=== PATIENT | female | born 1985 | race African-American/Black ===

== ENCOUNTER → 2017-01-17 | Outpatient (CLI) | payer OTHER ==
[~2017-01-17] MED LIST: ACET-749 PO; MTR600X PO; PRENTAB26 PO
--- NOTE | 2017-01-17 13:00 | DIAGNOSTIC IMAGING REPORT ---
(BARIUM SWALLOW) ESOPHAGUS CLINICAL HISTORY: CHEST PAIN. Painful swallowing. COMPARISON STUDY: None. FLUOROSCOPY TIME: 0.8 minutes.. FINDINGS: 24 images. The patient swallowed barium without difficulty. The contours of the hypopharynx are within normal limits. No hiatus hernia. No gastroesophageal reflux. The esophagus is normal in course, motility and caliber. The barium tablet passed without difficulty. IMPRESSION: Normal barium swallow. Electronically signed by: Timbo Hammer M.D. 01/17/2017 12:58 PM Dictated Date/Time: 01/17/2017 12:55 PM
== END | disposition home or self-care (01) ==
LOC: C.RAD 11:45
PROVIDERS: ATTEND Family Medicine
DX: R07.9 Chest pain, unspecified (principal); R13.10 Dysphagia, unspecified

== ENCOUNTER 2018-01-19 14:46 | Emergency (ER) | payer OTHER ==
[~2018-01-19] VITALS: Ht 160 cm; Wt 75.1 kg
[2018-01-19 14:59] VITALS: TEMP 36.8; Ht 160 cm; Wt 75.1 kg
[2018-01-19] MEDS ORDERED: PROPARACAINE HCL 0.5% OP SOLN 15 ML BTL OP STA (15:12)
--- NOTE | 2018-01-19 15:37 | EMERGENCY ROOM VISIT NOTE ---
ED Visit Note First contact with patient: 15:07 CHIEF COMPLAINT: Left eye pain HISTORY OF PRESENT ILLNESS: This 32-year-old female patient presents to the emergency department, ambulatory, complaining of pain in the left eye since last evening. The patient states she was pulling her child's shirt off, when she accidentally struck her left eye with the knuckle of her thumb. She reports some redness over the sclera and a possible blood clot. She states she has been using lubricating drops 3-4 times since the incident occurred, however this morning when she awoke she was experiencing a headache and her eye was burning. She states she also noticed a black speck in her vision which does move around when she moves her eye. She was seen at her PCPs office, diagnosed with a corneal abrasion, but advised to come to the emergency department for evaluation for possible retinal tear. The patient was given a prescription for antibiotic drops, however she has not picked them up. The patient does report wearing glasses, but denies wearing contacts.. There has been a constant moderate pain and irritation, redness and tearing in the eye. There is a mild blurring of vision at times and light bothers the eye. The vision has not been decreased over all. The patient does not wear contacts. The patient rates the pain as throbbing and 7/10. The patient has not had previous injuries to this eye. Tetanus shot is not up to date. REVIEW OF SYSTEMS: A 6 system review of systems was completed with positives and pertinent negatives listed in the HPI. ALLERGIES: None MEDICATIONS: Multivitamins PMH: None. The patient is currently breast-feeding. SOCIAL HISTORY: The patient lives locally with family. She denies drug, alcohol , tobacco use. PHYSICAL EXAM: Vital Signs: Reviewed Nurse's notes, vital signs stable. Visual acuity 20/25 right, 20/30 left. GENERAL: This is a 22 year old female, in no acute distress, but who is uncomfortable from the eye problem. Well-developed well-nourished. EYES: The pupils are equal round and reactive to light and accommodation. EOMs are full and without tenderness. There is discharge of clear tears from the left eye which is slightly injected in the inferior outer quadrant. There is no foreign body visible under the eyelid even after lid eversion. Funduscopic exam reveals no hemorrhages, papilledema, obvious retinal tear, or other abnormalities. No foreign body was seen embedded in the cornea under slit lamp exam. The cornea was clear and no hyphema was seen. Fluorescein uptake was observed with ultraviolet light significant for a very mild/superficial corneal abrasion in the inferior outer quadrant, over the sclera and not extending into the iris. EMERGENCY DEPARTMENT COURSE: I examined the patient. Alcaine 2 drops were placed in the patient's left eye. A slit lamp exam was performed as above. The patient already has a prescription for antibiotic drops from her PCP, so she was encouraged to fill these and use them as directed. She was given strict return precautions, and encouraged to follow-up with ophthalmology first thing on Sunday morning. The patient was given a Tdap injection. Discharge instructions reviewed. The patient was discharged home in good condition. I attest that I have personally reviewed the patient's current medication list. Patient was found to have normal blood pressure on screening and does not require follow-up. Etiologies such as conjunctivitis, corneal abrasion, uveitis, glaucoma, periorbital cellulitis, orbital cellulitis, abscess, trauma, as well as others were entertained. DIAGNOSIS: Corneal abrasion of the left eye The chart was completed utilizing [employer] Speech voice recognition software. Grammatical errors, random word insertions, pronoun errors, and incomplete sentences are an occasional consequence of this system due to software limitations, ambient noise, and hardware issues. Any formal questions or concerns about the content, text, or information contained within the body of this dictation should be directly addressed to the provider for clarification. Current/Historical Medications Scheduled Multiple Vitamin (Multivitamin), 1 TAB PO DAILY Allergies Coded Allergies: No Known Allergies (Unverified , 04/07/16) Vital Signs Date Time Temp Pulse Resp B/P (MAP) Pulse Ox O2 Delivery O2 Flow Rate FiO2 01/19/18 16:01 60 20 108/66 99 01/19/18 14:59 36.8 68 20 102/71 100 Room Air Medications Administered Medications (Trade) Dose Ordered Sig/Laura Route Start Time Stop Time Status Last Admin Dose Admin Diphtheria/ Pertussis/Tetanus Vacc (Adacel Inj) 0.5 ml ONCE ONCE IM. 01/19/18 16:00 01/19/18 16:01 DC 01/19/18 15:59 0.5 ML Departure Information Impression Primary Impression: Corneal abrasion, left Dispostion Home / Self-Care Condition GOOD Referrals Woytowich, Ashlee A., PA-C (PCP) Alverto Chacko D.O. Patient Instructions ED Eye Injury Corneal Abrasion, ED Immunization Tetanus and FU, [facility] Additional Instructions You have been treated in the Emergency Department today for your Corneal Abrasion. Use the drops prescribed to you by your PCP as directed. For pain control, you can use the following xowd-bve-avprxve medicines (if >12 yo): Ibuprofen(Motrin, Advil) may be used for fever or pain. Use 600mg every six hours as needed. Take with food. Avoid using more than 2400mg in a 24 hour period. Do not use 2400mg per day for more than three consecutive days without physician direction. Prolonged inappropriate use can lead to stomach upset or ulcers. (AND/OR) Acetaminophen(Tylenol) may be used for fever or pain. Use 1000mg every six hours as needed. Avoid using more than 3000mg in a 24 hour period. You should relax in a quiet, dark place for the rest of the day. You should wear sunglasses while outside for the next few days until your eyes are not as sensitive to the light. You should schedule a follow-up appointment in 2-3 days with your [employer] (contact information provided) for further evaluation and treatment of your Corneal Abrasion. Return to the Emergency Department if your current symptoms worsen despite treatment course outlined above, or if you develop any of the following symptoms : intractable pain, visual disturbances, loss of vision, increased redness, swelling, drainage, increased size of the black speck, changes in vision like a curtain closing over the eye, or if you develop a fever. Problem Qualifiers Primary Impression: Corneal abrasion, left Encounter type: initial encounter Qualified Codes: S05.02XA - Injury of conjunctiva and corneal abrasion without foreign body, left eye, initial encounter
[2018-01-19] MEDS ORDERED: MULTTAB58 PO (15:48)
[2018-01-19] MEDS ORDERED: DIPHTHERIA/TETANUS/PERTUSSIS 0.5 ML SYR/VIAL IM. ONE (16:00)
[2018-01-19 16:01] VITALS: BP 108/66; PULSE 60; O2SAT 99
== END 2018-01-19 16:03 | disposition home or self-care (01) ==
LOC: C.EDB 14:47 → C.EDD 16:03
DX: S05.02XA Injury of conjunctiva and corneal abrasion without foreign body, left eye, initial encounter (principal); W22.8XXA Striking against or struck by other objects, initial encounter; Y93.F9 Activity, other caregiving; Z23 Encounter for immunization